=== PATIENT | male | born 1970 | race Caucasian/White ===

== ENCOUNTER 2023-10-10 18:58 | Emergency (ER) | payer OTHER ==
[~2023-10-10] VITALS: Ht 175.3 cm; Wt 74.8 kg
[2023-10-10 19:50] VITALS: BP 129/97; PULSE 81; RESP 18; TEMP 97.8; O2SAT 99
[2023-10-10] MEDS ORDERED: PRED20TA5 PO (20:48)
[2023-10-10] MEDS ORDERED: ALBU0.0912 IH (20:48)
[2023-10-10 21:30] LABS: FLU A ANTIGEN negative (NEGATIVE); FLU B ANTIGEN NEGATIVE (NEGATIVE)
== END 2023-10-10 20:54 | disposition home or self-care (01) ==
LOC: MED 18:58
DX: J98.01 Acute bronchospasm (principal); Z20.822 Contact with and (suspected) exposure to COVID-19; Z79.899 Other long term (current) drug therapy
CPT/HCPCS: 99283